=== PATIENT | male | born 1955 | race Caucasian/White ===

== ENCOUNTER 2019-07-17 12:30 | Emergency (ER) | payer OTHER ==
[~2019-07-17] VITALS: Ht 172.7 cm; Wt 68.9 kg
[2019-07-17 13:15] VITALS: BP 138/89
--- NOTE | 2019-07-17 14:18 | NUR ---
PT TAKEN TO ER BED 02
--- NOTE | 2019-07-17 14:31 | NUR ---
Pt returned from CT
--- NOTE | 2019-07-17 14:45 | NUR ---
DENIES KO OR EMESIS THAT DAY--\ HEMATOMA HAS SUBSIDED SINCE BUT ECCHYMOSIS TO OU YESTERDAY WITH AN EPISODE OF DIZZINESS. pt awake ,alert, ambulatory with staedy gait. RIGHT MOLAR PAIN ---SEEN BY DENTIST 2 DAYS AGO---RX AMOXICILLIN NO STOREY SIGN NOTED,, HX---PRE DM, HYPERLIPIDEMIA, RX---METFORMIN, ATORVASTATIN
[2019-07-17 15:01] VITALS: BP 138/89
--- NOTE | 2019-07-17 15:01 | NUR ---
Patient discharged with v/s stable. Written and verbal after care instructions given and explained. Patient verbalized understanding. Ambulatory with steady gait. All questions addressed prior to discharge. Advised to follow up with PMD.
== END 2019-07-17 15:01 | disposition home or self-care (01) ==
LOC: MED 12:30
DX: S09.90XA Unspecified injury of head, initial encounter (principal); E11.9 Type 2 diabetes mellitus without complications; E78.5 Hyperlipidemia, unspecified; W18.39XA Other fall on same level, initial encounter; Y92.89 Other specified places as the place of occurrence of the external cause; Y93.89 Activity, other specified; Y99.8 Other external cause status
CPT/HCPCS: 70450; 99284